=== PATIENT | female | born 1935 | race Caucasian/White ===

== ENCOUNTER 2021-05-19 17:03 | Inpatient (IN) | payer MEDICARE, OTHER ==
[~2021-05-19] VITALS: Ht 160 cm; Wt 52.0 kg
[~2021-05-19 17:03] MED LIST: ASPI-1071 PO; ATOR20TA66 PO; CLOP75TA34 PO; COR3.125T PO
[2021-05-19 18:44] LABS: BASOPHILS % (AUTO) 0.3 % (0-1); EOSINOPHILS # (AUTO) 0.1 X10'3 (0-0.9); EOSINOPHILS % (AUTO) 1.7 % (0-6); HEMATOCRIT 40.9 % (35.0-45.0); HEMOGLOBIN 13.3 g/dl (12.0-16.0); LYMPHOCYTES # (AUTO) 0.9 X10'3 (1.1-4.8); MEAN CORPUSCULAR HGB CONC 32.5 g/dL (33.0-36.5); MEAN CORPUSCULAR VOLUME 89.2 FL (78-98); MEAN PLATELET VOLUME 7.8 FL (7.4-10.4); MONOCYTES # (AUTO) 0.6 X10'3 (0-0.9); MONOCYTES % (AUTO) 8.7 % (2-12); NEUTROPHILS # (AUTO) 5.2 X10'3 (1.8-7.7); NEUTROPHILS % (AUTO) 76.3 % (42-75); PLATELET COUNT 260 X10'3 (140-440); RED BLOOD COUNT 4.59 X10'6 (4.20-5.60); RED CELL DISTRIBUTION WIDTH 13.6 % (11.5-14.5); WHITE BLOOD COUNT 6.9 X10'3 (4.5-11.0)
--- NOTE | 2021-05-19 18:47 | NUR ---
Patient left for CT.
[2021-05-19 18:50] LABS: D-DIMER 0.24 MG/L FEU (0-0.50)
[2021-05-19 18:53] LABS: ALANINE AMINOTRANSFERASE 10 U/L (12-78); ALBUMIN 3.4 G/DL (3.4-5.0); ALBUMIN/GLOBULIN RATIO 0.9 (1.1-1.5); ALKALINE PHOSPHATASE 62 IU/L (46-116); ANION GAP 4 (8-16); ASPARTATE AMINO TRANSFERASE 20 U/L (10-37); BILIRUBIN,TOTAL 0.6 MG/DL (0.1-1.0); BLOOD UREA NITROGEN 9 MG/DL (7-18); BUN/CREATININE RATIO 16.1 (6.6-38.0); CALCIUM 8.7 MG/DL (8.5-10.1); CHLORIDE 96 MMOL/L (99-107); CREATININE 0.56 MG/DL (0.40-0.90); GLUCOSE 119 MG/DL (70-104); POTASSIUM 4.6 MMOL/L (3.5-5.1); SODIUM 131 MMOL/L (135-145); TOTAL CARBON DIOXIDE 31.5 MMOL/L (24-32); TOTAL PROTEIN 7.3 G/DL (6.4-8.2); eGFR > 90 ML/MIN
--- NOTE | 2021-05-19 19:27 | NUR ---
PATIENT CT HEAD BLEED WITHOUT A SHIFT, STILL C/O RIGHT SIDED HEADACHE.
[2021-05-19 19:44] LABS: APTT 30 SECONDS (22-32)
[2021-05-19] MEDS: niCARDipine-NS 40mg/200ml IVPB 200 ML IV SCH (19:47)
--- NOTE | 2021-05-19 20:16 | NUR ---
SPOKE WITH [facility]. PATIENT UPDATED.
--- NOTE | 2021-05-19 20:30 | NUR ---
PATIENT WILL BE ADMITTED TO HOSP. CANCEL TRANSFER PATIENT MADE AWARE. a+OX4.
[2021-05-19] MEDS ORDERED: temazepam 15mg capsule PO PRN (21:00)
--- NOTE | 2021-05-19 21:30 | NUR ---
MELVA DUKES MANAGER MACHINE ORDERED TO HOLD NICARDIPINE. B/P 118 SYSTOLIC. PATIENT RESTING IN ROOM, NOLASCO 05/04.
--- NOTE | 2021-05-19 22:06 | NUR ---
SPOKE WITH MARIANA PELAYO AT [phone] REPORTS ASSUMED POA IN SEPTEMBER, PATIENT ON DNR AND COPY WITH DR PAGE BAILEY AT [facility] AND SHE UNABLE TO GIVE COPY UNTIL AM. STEAM BLOCKER CINDY AND CELL ROOM OPERATOR AWARE.
--- NOTE | 2021-05-19 22:30 | NUR ---
Patient admitted, Dr Dangelo, hospitalist saw patient. Awaiting orders and room. No change in patient previous presentation
[2021-05-19] MEDS ORDERED: CLOP75TA33 PO (23:07)
[2021-05-19] MEDS ORDERED: CARV3.122 PO (23:07)
[2021-05-19] MEDS ORDERED: ATOR20TA66 PO (23:07)
[2021-05-19] MEDS ORDERED: MEMA10TA56 PO (23:07)
[2021-05-19] MEDS ORDERED: magnesium 2GM in 50ml NS 50 ML IV PRN (23:20)
[2021-05-19] MEDS ORDERED: acetaminophen 325mg tablet PO PRN ×2 (23:20)
[2021-05-19] MEDS ORDERED: ondansetron/PF 4mg/2ml inj IV PRN (23:20)
[2021-05-19] MEDS ORDERED: magnesium 4gm in 100ml NS 100 ML IV PRN (23:20)
[2021-05-19] MEDS ORDERED: potassium CL 10mEq/100ml bag 100 ML IV PRN (23:20)
[2021-05-19] MEDS ORDERED: morphine 2 MG/ML inj. syringe IV PRN (23:20)
[2021-05-19] MEDS ORDERED: HYDROcodone/acetaminophen 5mg/325mg tablet PO PRN (23:20)
[2021-05-19] MEDS ORDERED: potassium Cl 20 mEq SR tablet PO PRN ×2 (23:20)
[2021-05-19] MEDS ORDERED: normal saline 1000ml 1,000 ML IV SCH (23:20)
[2021-05-19] MEDS ORDERED: magnesium Cl slow-release 64mg tablet PO PRN (23:20)
--- NOTE | 2021-05-19 23:30 | NUR ---
patient resting in room, no change in previous presentation.
[2021-05-20] VITALS (11 sets, daily range): BP systolic 125–151; BP diastolic 55–83
--- NOTE | 2021-05-20 | NUR ---
Patient now getting transferred again, Dr Simons spoke with MARIANA.
--- NOTE | 2021-05-20 01:00 | NUR ---
Patient now back to transport by Dr Simons awaiting acceptance. Resting in room A+ox4 with confusion. Still not good historian. Speech clear. Move all extremeties.
--- NOTE | 2021-05-20 01:50 | NUR ---
SPOKE WITH DR LEMUS ORDERED TO RESTART NICARDIPINE GTT WITH PARAMETERS SYSTOLIC BETWEEN 110-140. PATIENT A+OX4. sKIN WARM AND DRY. TALK IN FULL SENTENCES. NO CHANGE IN PREVIOUS PRESENTATION
--- NOTE | 2021-05-20 03:31 | NUR ---
PATIENT ADMITTED AGAIN TO HOSPITAL. ICU ACCEPTED PATIENT. TRANSFER CANCELLED. PATIENT HAVE NO CHANGE IN PREVIOUS PRESENTATION.
--- NOTE | 2021-05-20 04:49 | NUR ---
nicardipine drip on hold due b/p. will continue to monitor. asleep, chest rise and fall. will conintue to monitor.
[2021-05-20] MEDS ORDERED: potassium CL 10mEq/100ml bag 100 ML IV PRN (05:35)
[2021-05-20] MEDS ORDERED: magnesium 4gm in 100ml NS 100 ML IV PRN (05:35)
[2021-05-20] MEDS ORDERED: acetaminophen 325mg tablet PO PRN ×2 (05:35)
[2021-05-20] MEDS ORDERED: magnesium Cl slow-release 64mg tablet PO PRN (05:35)
[2021-05-20] MEDS ORDERED: ondansetron/PF 4mg/2ml inj IV PRN (05:35)
[2021-05-20] MEDS ORDERED: magnesium 2GM in 50ml NS 50 ML IV PRN (05:35)
[2021-05-20] MEDS ORDERED: potassium Cl 20 mEq SR tablet PO PRN ×2 (05:35)
[2021-05-20] MEDS: niCARDipine-NS 40mg/200ml IVPB 200 ML IV SCH ×2 (06:28→11:25)
[2021-05-20] MEDS ORDERED: docusate sod 100mg capsule PO SCH ×3 (08:00→20:00)
[2021-05-20] MEDS: K and/or MAG REPLACEMENT MC SCH ×2 (08:00→19:42)
[2021-05-20] MEDS ORDERED: K and/or MAG REPLACEMENT MC SCH (08:00)
[2021-05-20] MEDS ORDERED: memantine 5mg tablet PO SCH (08:00)
--- NOTE | 2021-05-20 10:00 | NUR ---
Dk MCCABE spoke with niece and gave her an update regarding plan of care for her aunt. Niece is the POA.
[2021-05-20] MEDS: atorvastatin 20mg tablet PO SCH (10:43)
[2021-05-20] MEDS: carVEDilol 3.125mg tablet PO SCH ×2 (10:44→19:39)
--- NOTE | 2021-05-20 15:36 | NUR ---
I have received report from ELIOT Root and had the opportunity to ask questions and assume patient care.
--- NOTE | 2021-05-20 16:00 | NUR ---
Pt arrived to surgical floor via wheelchair, with wooden cane and 1 bag of belongings. Settled in room 346A, call light in reach.
--- NOTE | 2021-05-20 18:18 | NUR ---
Problems reprioritized. Patient report given, questions answered & plan of care reviewed with ELIOT Cannon.
[2021-05-20] MEDS: docusate sod 100mg capsule PO SCH (19:39)
[2021-05-21] VITALS: BP 142/73
[2021-05-21 06:00] VITALS: BP 119/61
--- NOTE | 2021-05-21 06:15 | NUR ---
received report from suellen alonso
--- NOTE | 2021-05-21 06:51 | NUR ---
Report to ELIOT Watson, for continuation of care. Patient remains in stable condition. Patient needs close monitoring to prevent fall.
[2021-05-21 07:05] LABS: BASOPHILS % (AUTO) 0.5 % (0-1); EOSINOPHILS # (AUTO) 0.2 X10'3 (0-0.9); EOSINOPHILS % (AUTO) 3.3 % (0-6); HEMATOCRIT 37.3 % (35.0-45.0); HEMOGLOBIN 12.5 g/dl (12.0-16.0); LYMPHOCYTES # (AUTO) 1.4 X10'3 (1.1-4.8); LYMPHOCYTES % (AUTO) 21.3 % (21-51); MEAN CORPUSCULAR HEMOGLOBIN 29.8 PG (27.0-31.0); MEAN CORPUSCULAR HGB CONC 33.5 g/dL (33.0-36.5); MEAN CORPUSCULAR VOLUME 89.1 FL (78-98); MEAN PLATELET VOLUME 7.4 FL (7.4-10.4); MONOCYTES # (AUTO) 0.8 X10'3 (0-0.9); MONOCYTES % (AUTO) 11.8 % (2-12); NEUTROPHILS # (AUTO) 4.2 X10'3 (1.8-7.7); NEUTROPHILS % (AUTO) 63.1 % (42-75); PLATELET COUNT 253 X10'3 (140-440); RED BLOOD COUNT 4.18 X10'6 (4.20-5.60); RED CELL DISTRIBUTION WIDTH 13.4 % (11.5-14.5); WHITE BLOOD COUNT 6.6 X10'3 (4.5-11.0)
[2021-05-21 07:16] LABS: ALBUMIN 2.9 G/DL (3.4-5.0); ANION GAP 0 (8-16); BLOOD UREA NITROGEN 17 MG/DL (7-18); BUN/CREATININE RATIO 27.4 (6.6-38.0); CALCIUM 8.5 MG/DL (8.5-10.1); CHLORIDE 96 MMOL/L (99-107); CREATININE 0.62 MG/DL (0.40-0.90); GLUCOSE 99 MG/DL (70-104); PHOSPHORUS 3.5 MG/DL (2.3-4.5); POTASSIUM 4.2 MMOL/L (3.5-5.1); SODIUM 129 MMOL/L (135-145); TOTAL CARBON DIOXIDE 33.2 MMOL/L (24-32); eGFR > 90 ML/MIN
[2021-05-21] MEDS: K and/or MAG REPLACEMENT MC SCH ×2 (08:00→20:00)
[2021-05-21] MEDS: carVEDilol 3.125mg tablet PO SCH ×2 (08:14→20:12)
[2021-05-21] MEDS: atorvastatin 20mg tablet PO SCH (08:14)
[2021-05-21] MEDS: docusate sod 100mg capsule PO SCH ×2 (08:14→20:12)
[2021-05-21 11:00] VITALS: BP 120/55
--- NOTE | 2021-05-21 18:47 | NUR ---
gave report to suellen franco
[2021-05-21 20:12] VITALS: BP 116/60
[2021-05-21 23:35] VITALS: BP 126/59
[2021-05-22 06:04] LABS: BASOPHILS % (AUTO) 0.4 % (0-1); EOSINOPHILS # (AUTO) 0.3 X10'3 (0-0.9); EOSINOPHILS % (AUTO) 4.2 % (0-6); HEMATOCRIT 38.5 % (35.0-45.0); HEMOGLOBIN 12.6 g/dl (12.0-16.0); LYMPHOCYTES # (AUTO) 1.3 X10'3 (1.1-4.8); LYMPHOCYTES % (AUTO) 21.1 % (21-51); MEAN CORPUSCULAR HEMOGLOBIN 29.2 PG (27.0-31.0); MEAN CORPUSCULAR HGB CONC 32.8 g/dL (33.0-36.5); MEAN CORPUSCULAR VOLUME 89.1 FL (78-98); MEAN PLATELET VOLUME 7.7 FL (7.4-10.4); MONOCYTES # (AUTO) 0.7 X10'3 (0-0.9); MONOCYTES % (AUTO) 10.7 % (2-12); NEUTROPHILS # (AUTO) 3.9 X10'3 (1.8-7.7); NEUTROPHILS % (AUTO) 63.6 % (42-75); PLATELET COUNT 269 X10'3 (140-440); RED BLOOD COUNT 4.32 X10'6 (4.20-5.60); RED CELL DISTRIBUTION WIDTH 13.7 % (11.5-14.5); WHITE BLOOD COUNT 6.1 X10'3 (4.5-11.0)
[2021-05-22 06:24] LABS: ALBUMIN 2.9 G/DL (3.4-5.0); ANION GAP 8 (8-16); BLOOD UREA NITROGEN 12 MG/DL (7-18); BUN/CREATININE RATIO 20.7 (6.6-38.0); CALCIUM 8.7 MG/DL (8.5-10.1); CHLORIDE 95 MMOL/L (99-107); CREATININE 0.58 MG/DL (0.40-0.90); GLUCOSE 91 MG/DL (70-104); MAGNESIUM 1.8 MG/DL (1.5-2.4); SODIUM 133 MMOL/L (135-145); TOTAL CARBON DIOXIDE 30.2 MMOL/L (24-32); eGFR > 90 ML/MIN
[2021-05-22 07:00] VITALS: BP 132/64
[2021-05-22] MEDS: docusate sod 100mg capsule PO SCH ×2 (07:21→20:26)
[2021-05-22] MEDS: carVEDilol 3.125mg tablet PO SCH ×2 (07:21→20:26)
[2021-05-22] MEDS: atorvastatin 20mg tablet PO SCH (07:21)
[2021-05-22] MEDS: K and/or MAG REPLACEMENT MC SCH ×2 (08:00→20:00)
[2021-05-22 11:00] VITALS: BP 157/66
[2021-05-22 20:00] VITALS: BP 168/78
[2021-05-23] VITALS: BP 157/75
[2021-05-23] MEDS: carVEDilol 3.125mg tablet PO SCH (07:00)
[2021-05-23] MEDS: docusate sod 100mg capsule PO SCH (07:00)
[2021-05-23] MEDS: atorvastatin 20mg tablet PO SCH (07:00)
[2021-05-23 07:02] LABS: BASOPHILS # (AUTO) 0.1 X10'3 (0-0.2); BASOPHILS % (AUTO) 0.9 % (0-1); EOSINOPHILS # (AUTO) 0.2 X10'3 (0-0.9); EOSINOPHILS % (AUTO) 3.7 % (0-6); HEMATOCRIT 37.1 % (35.0-45.0); HEMOGLOBIN 12.1 g/dl (12.0-16.0); LYMPHOCYTES # (AUTO) 1.3 X10'3 (1.1-4.8); LYMPHOCYTES % (AUTO) 18.8 % (21-51); MEAN CORPUSCULAR HEMOGLOBIN 28.9 PG (27.0-31.0); MEAN CORPUSCULAR HGB CONC 32.5 g/dL (33.0-36.5); MEAN CORPUSCULAR VOLUME 88.8 FL (78-98); MEAN PLATELET VOLUME 7.8 FL (7.4-10.4); MONOCYTES # (AUTO) 0.8 X10'3 (0-0.9); MONOCYTES % (AUTO) 11.5 % (2-12); NEUTROPHILS # (AUTO) 4.3 X10'3 (1.8-7.7); NEUTROPHILS % (AUTO) 65.1 % (42-75); PLATELET COUNT 259 X10'3 (140-440); RED BLOOD COUNT 4.18 X10'6 (4.20-5.60); RED CELL DISTRIBUTION WIDTH 13.5 % (11.5-14.5); WHITE BLOOD COUNT 6.7 X10'3 (4.5-11.0)
[2021-05-23 07:08] LABS: ALBUMIN 2.9 G/DL (3.4-5.0); ANION GAP 5 (8-16); BLOOD UREA NITROGEN 19 MG/DL (7-18); BUN/CREATININE RATIO 24.4 (6.6-38.0); CHLORIDE 92 MMOL/L (99-107); CREATININE 0.78 MG/DL (0.40-0.90); GLUCOSE 90 MG/DL (70-104); MAGNESIUM 1.8 MG/DL (1.5-2.4); PHOSPHORUS 3.9 MG/DL (2.3-4.5); POTASSIUM 4.4 MMOL/L (3.5-5.1); SODIUM 129 MMOL/L (135-145); TOTAL CARBON DIOXIDE 32.5 MMOL/L (24-32); eGFR 70 ML/MIN
[2021-05-23] MEDS: K and/or MAG REPLACEMENT MC SCH (08:00)
[2021-05-23 08:29] VITALS: BP 147/74
[2021-05-23 11:48] VITALS: BP 111/56
== END 2021-05-23 15:26 | DRG 82 ==
LOC: ER 17:06 → UNDOADMIN 23:21 → ED HOLD 23:21 → UNDOADMIN 05-20 05:42 → ICU 2S 05-20 07:30 → SUR 3N 05-20 16:00
PROVIDERS: ADMIT Internal Medicine Critical Care Medicine; ATTEND Internal Medicine
DX: S06.369A Traumatic hemorrhage of cerebrum, unspecified, with loss of consciousness of unspecified duration, initial encounter (principal); J96.01 Acute respiratory failure with hypoxia; G93.41 Metabolic encephalopathy; W07.XXXA Fall from chair, initial encounter; R55 Syncope and collapse; Z66 Do not resuscitate; Z20.822 Contact with and (suspected) exposure to COVID-19; E78.00 Pure hypercholesterolemia, unspecified; E78.5 Hyperlipidemia, unspecified; F03.90 Unspecified dementia, unspecified severity, without behavioral disturbance, psychotic disturbance, mood disturbance, and anxiety; Z60.2 Problems related to living alone; J43.9 Emphysema, unspecified; N18.9 Chronic kidney disease, unspecified; I12.9 Hypertensive chronic kidney disease with stage 1 through stage 4 chronic kidney disease, or unspecified chronic kidney disease; I25.10 Atherosclerotic heart disease of native coronary artery without angina pectoris; D63.1 Anemia in chronic kidney disease; M19.90 Unspecified osteoarthritis, unspecified site; R29.6 Repeated falls; Z87.891 Personal history of nicotine dependence; Z79.02 Long term (current) use of antithrombotics/antiplatelets; Z79.899 Other long term (current) drug therapy; Y93.89 Activity, other specified; Y92.098 Other place in other non-institutional residence as the place of occurrence of the external cause; Y99.8 Other external cause status; Z91.15 Patient's noncompliance with renal dialysis; Z98.61 Coronary angioplasty status
CPT/HCPCS: 36415; 70450; 71045; 80048; 80053; 82948; 83735; 84100; 84484; 85025; 85379; 85610; 85730; 87081; 87635; 92508; 92616; 93005; 96365; 96366; 97110; 97116; 97161; 99285; C9803; G0378; J3490; J7030